=== PATIENT | male | born 1990 | race Caucasian/White ===

== ENCOUNTER 2021-02-16 03:41 | Emergency (ER) | payer MEDICAID, SELFPAY ==
[2021-02-16 03:51] VITALS: BP 109/70; PULSE 88; RESP 14; TEMP 37.2; O2SAT 97; BMI 25.9
[2021-02-16 04:00] VITALS: BP 112/66; PULSE 74; RESP 14; TEMP 37.2; O2SAT 97
--- NOTE | 2021-02-16 05:43 | ED.BACK ---
HPI - Back Pain/Injury General Chief Complaint: Back Pain/Injury Stated Complaint: Back Pain Time Seen by Provider: 02/16/21 05:37 Source: patient Mode of arrival: ambulatory Limitations: no limitations History of Present Illness HPI Narrative: Patient comes emergency room complaining of bilateral lower back pain. Patient states it started spontaneously, he has had this pain before, for which he needed physical therapy. Patient denies any injury, no heavy lifting. Patient denies any urinary/fecal incontinence/retention. Denies dysuria/hematuria Related Data Previous Rx's Medication Instructions Recorded cyclobenzaprine 5 mg PO TID PRN #10 tab 02/16/21 Allergies Allergy/AdvReac Type Severity Reaction Status Date / Time Penicillins [PCN] Allergy Unknown UNKNOWN Unverified 07/07/20 17:24 tramadol Allergy Unknown nausea and Verified 07/26/15 00:00 vomiting Review of Systems Review of Systems: Constitutional : No Weight loss, No Fever, No Chills, No Night Sweats, No Fatigue, No Malaise ENT/Mouth : No Hearing loss, No Ear Pain, No Nasal Congestion, No Sinus Pain, No Hoarseness, No sore throat, No Rhinorrhea, No Swallowing Difficulty Eyes: No Eye Pain, No Swelling, No Redness, No Foreign Body, No Discharge, No Vision Changes Cardiovascular : No Chest Pain, No SOB, No Dyspnea on Exertion, No Orthopnea, No Edema, No Palpitations Respiratory : No Cough, No Sputum, No Wheezing, No Smoke Exposure, No Dyspnea Gastrointestinal : No Nausea, No Vomiting, No Diarrhea, No Constipation, No abdominal Pain, No Hematochezia, No Melena Genitourinary : no irregular bleeding, No Dysuria, No Urinary Frequency, No Hematuria, No Urinary Incontinence, No Urgency, No Flank Pain, No Urinary Flow Changes, No Hesitancy Musculoskeletal : Complaining of back pain, No Myalgias, No Joint Swelling Skin : No Skin Lesions, No rash Neuro : No Weakness, No Numbness, No Paresthesias, No Loss of Consciousness, No Dizziness, No Headache Psych : No Anxiety/Panic, No Depression, No SI/HI/AH/VH, No Social Issues, Heme/Lymph: No Bruising, No Bleeding,No Lymphadenopathy Endocrine : No Polyuria, No Polydipsia, No Temperature Intolerance [facility] Past Medical History Medical History Asthma Back pain Social History Social History (Updated 02/16/21 @ 03:54 by Domenica Russell RN) Smoking Status: Current every day smoker Tobacco Type: Cigarette Advance Directives: No Physical Exam Vital Signs: Vital Signs: Last Vital Signs Temp 98.9 F 02/16/21 03:51 Pulse 88 02/16/21 03:51 Resp 14 02/16/21 03:51 BP 109/70 02/16/21 03:51 Pulse Ox 97 02/16/21 03:51 Body Mass Index 25.9 Appearance: Alert. Oriented X3. No acute distress. Very somnolent, strong smell of marijuana Eyes: Pupils equal, round and reactive to light. ENT: Pharynx normal. Neck: Normal inspection. Neck supple. No lymph nodes noted. No crepitus CVS: Normal heart rate and rhythm. Pulses normal. Normal S1 and S2 Respiratory: No respiratory distress. Breath sounds normal. No Wheezing. No rales Abdomen: Soft and nontender. No rigidity. No distention. good BS x4 Back: Pain to palpation over the paraspinal muscles, no C-spine tenderness, no lumbar or thoracic spine tenderness Skin: Skin warm and dry. Normal skin color. Normal skin turgor. Extremities: No lower extremity edema. No lower extremity edema. No Lacerations. No Rash Neuro: Oriented X 3. No motor deficit. No sensory deficit. Moving all extermities. No slurred speech. Course Course Course Narrative: I discussed the physical exam with the patient, patient likely has muscle spasms. At this time, patient is very somnolent, he will not be given muscle relaxants at this time but they will be sent to his pharmacy. Discharge Plan Discharge Clinical Impression: Back muscle spasm Patient Disposition: Home, Self-Care Instructions: Muscle Spasm (ED) Additional Instructions: Please follow-up with your primary care physician tomorrow. If you have any worsening or new symptoms, please return to the emergency room or call 911 Prescriptions: New cyclobenzaprine 5 mg tablet 5 mg PO TID PRN (Reason: muscle spasm) Qty: 10 RF: 0
--- NOTE | 2021-02-16 05:57 | PC.NURSE ---
Patient lying on the stretcher refusing to respond to this RN repeatedly calling his name at the bedside. Patient requiring frequent verbal requests before finally rolling over and responding to this RN. Discharge instructions given to the patient and he was advised to follow up with his PCP for his chronic back pain. Patient mumbling and not answering questions straight forward. Gait steady independently. This RN walked patient out to the waiting room after discharge.
== END 2021-02-16 05:59 | disposition home or self-care (01) ==
PROVIDERS: Emergency Provider Emergency Medicine; PCP Internal Medicine Geriatric Medicine
DX: M62.830 Muscle spasm of back (principal); M54.5 Low back pain; F17.210 Nicotine dependence, cigarettes, uncomplicated
CPT/HCPCS: 99283; 99284